=== PATIENT | female | born 2000 | race Hispanic/Latino ===

== ENCOUNTER 2025-03-12 04:54 | Emergency (ER) | payer SELFPAY ==
[~2025-03-12] VITALS: Ht 167.6 cm; Wt 81.6 kg
--- NOTE | 2025-03-12 05:04 | NUR ---
UA CUP PROVIDED
--- NOTE | 2025-03-12 05:21 | ERN ---
ED Note History of Present Illness Stated Complaint: BACK PAIN Chief Complaint: Back Pain-No Injury Time Seen by MD: 05:15 Dictation: This is a 24-year-old female who presented to the emergency room with complaints of upper back pain radiating to the ribs. All this started on 03/11/2025. History of any fever chills or rigors. No cough sputum or hemoptysis. Pain has no relation to the breathing. No history of any trauma, motor vehicle accident to the back the pain started in the right flank area and radiates to the front. No history of any gallstones. She ate a hot dog around 5:30 p.m. and after she slept from 7-11 p.m. she woke up with this pain. Stated that she got a similar kind of pain in the past when she had a UTI although she did not have dysuria hematuria this time Temperature 97.5 pulse 85 respirations 18 blood pressure 118/82 with a pulse oximetry of 99% on room air Allergies: Coded Allergies: No Known Allergies (Unverified Allergy, Unknown, 03/12/25) Home Meds Active Scripts Nitrofurantoin Monohyd/M-Cryst (Macrobid 100 mg Capsule) 100 Mg Capsule, 1 CAP PO BID for 7 Days, #14 CAP 0 Refills Prov:NADIA LANDRY MD 03/12/25 Past Medical History Past Medical History: No Pertinent History Surgical History: None Family History: Negative Social History: Negative LMP: Feb 08, 2025 RN Note Reviewed/Agreed w/PFSH: Yes Review of System Dictation Constitutional: Negative for fever,chills, and weight loss Eyes: Negative for injury, pain,redness, and discharge ENT: Negative for injury,pain or swelling Cardiovascular: Negative for chest pain, palpitations, and edema Respiratory: Negative for shortness of breath, cough, and wheezing, Abdomen/GI: Negative for abdominal pain, nausea, vomiting, diarrhea, and constipation Back: Positive for upper back pain with radiation to ribs : Negative for injury, bleeding and discharge MS/Extremity: Negative for injury and deformity Skin: Negative for rash, and discoloration Neuro: Negative for headache, weakness, numbness, tingling, and seizure Psych: Negative for suicide ideation, homicidal ideation, and hallucinations Initial Vital Sign VS Vital Signs Date Time Temp Pulse Resp B/P (MAP) Pulse Ox O2 Delivery O2 Flow Rate FiO2 03/12/25 05:02 97.5 85 18 118/82 99 Room Air 03/12/25 07:39 0 21 Physical Exam Dictation General: awake, alert, NAD Head/Face: Normocephalic, atraumatic Eyes: PERRL, EOMI, vision at baseline ENT: oral cavity clear, TMs clear, no signs of infection Neck: Trachea midline, supple, no nuchal rigidity Cardiovascular: RRR, normal S1/S2, No MRGs, no JVD Respiratory: CTAB, no respiratory distress, No rales or wheezes Abdomen: Soft, non-tender, non-distended, normal bowel sounds, no guarding or rebound. Skin: Warm, dry, normal turgor, no rash MS/Extremity: Pulses equal, no cyanosis, neurovascular intact, FROM Neuro: COAx4, GCS 15, strength 5/5, CN 2-12 intact, normal cerebellar exam, normal gait, Psych: Normal behavior, mood, and affect normal Extremities-trace edema without any palpable cords, Homans sign is negative Results (Laboratory/Radiology) Laboratory/Radiology Laboratory Tests Test 03/12/25 06:30 Urine Color YELLOW (YELLOW) Urine Appearance CLOUDY (CLEAR) H Urine pH 5.5 (5.0-8.0) Urine Specific Chestnut 1.024 (1.001-1.031) Urine Protein NEGATIVE mg/dL (NEGATIVE) Urine Glucose (UA) NEGATIVE mg/dL (NEGATIVE) Urine Ketones NEGATIVE mg/dL (NEGATIVE) Urine Occult Blood +- (TRACE) (NEGATIVE) H Urine Nitrate NEGATIVE (NEGATIVE) Urine Bilirubin NEGATIVE mg/dL (NEGATIVE) Urine Urobilinogen 0.2 mg/dL (0.2-1.0) Urine Leukocyte Esterase 250 Sridevi/uL (NEGATIVE) H Urine RBC 2-5 /HPF (0-1) H Urine WBC 2-5 /HPF (0-1) H Urine Squamous Epithelial Cells MANY /HPF (0-2) Urine Bacteria Rare /HPF (None Seen) Urine HCG, Qualitative NEGATIVE (NEGATIVE) Labs Reviewed?: Yes ED Course ED Course Orders Procedure Category Date Status Time Urinalysis Profile LAB 03/12/25 Complete 05:20 ,Urine Test LAB 03/12/25 Complete 05:20 Culture Urine ALVARO 03/12/25 In Process 06:56 Ketorolac PHA 03/12/25 Complete Tromethamine 30mg/Ml 07:00 Ceftriaxone 1g Vial PHA 03/12/25 Complete (Rocephine 1g Inj) 07:00 Current Medications Medications (Trade) Dose Ordered Sig/Ten Route PRN Reason Start Time Stop Time Status Last Admin Dose Admin Ceftriaxone Sodium (ROCEphine 1G INJ) 1 gm ONCE ONCE IM 03/12/25 07:00 03/12/25 07:01 DC 03/12/25 07:51 Ketorolac Tromethamine (toRADol) 30 mg ONCE ONCE IM 03/12/25 07:00 03/12/25 07:01 DC 03/12/25 07:35 Vital Signs Date Time Temp Pulse Resp B/P (MAP) Pulse Ox O2 Delivery O2 Flow Rate FiO2 03/12/25 08:13 98.2 76 16 120/68 99 Room Air* 0 03/12/25 07:39 97.9 78 16 122/71 99 Room Air* 0 03/12/25 05:02 97.5 85 18 118/82 99 Room Air Medical Decision Making MDM Differential diagnosis-pyelonephritis, renal colic, nephrolithiasis musculoskeletal pain, Lumbago, degenerative disc disease, paraspinal muscle spasm, central canal stenosis, dish, optimal stenosis, herniated intervertebral discs, spondylolisthesis This is a 24-year-old female who presented to the emergency room with complaints of upper back pain radiating to the ribs. All this started on 03/11/2025. History of any fever chills or rigors. No cough sputum or hemoptysis. Pain has no relation to the breathing. No history of any trauma, motor vehicle accident to the back the pain started in the right flank area and radiates to the front. No history of any gallstones. She ate a hot dog around 5:30 p.m. and after she slept from 7-11 p.m. she woke up with this pain. Stated that she got a similar kind of pain in the past when she had a UTI although she did not have dysuria hematuria this time Temperature 97.5 pulse 85 respirations 18 blood pressure 118/82 with a pulse oximetry of 99% on room air 6:50 a.m. urinalysis shows very high levels of leuko esterase. We will give her a dose of Rocephin and pain medication. Care signed out to oncoming physician at 7:00 a.m. Rationale: Tests considered and ordered secondary to shared decision making include: Urinalysis and urine test is negative would pursue a CT abdomen Previous outside records reviewed: Old ER visits. Risk of complication and/or morbidity or mortality of patient management: None Medications-Per medication reconciliation Need for hospitalization: Patient does not meet criteria for hospitalization. Need for emergency major/minor surgery: No There are no social concerns with this patient. Prescription drug management Prescriptions will include symptomatic care Patient's prior external medical records from other ER visits were reviewed by me as indicated. Prior testing and results from previous visits were reviewed. Prior tests were taken into account with medical decision making and resource utilization, independent historian/historians were used to obtain complete medical history. I independently interpreted the test that were performed, results were reviewed by me and considered findings on radiology if ordered. Medical management and examination interpretation discussions were had by me with other qualified healthcare professionals as indicated for the patient's care. Problem List Problem List: (1) Right flank pain (2) UTI (urinary tract infection) DX & DISP Disposition: Discharge Departure Impression: Primary Impression: Right flank pain Additional Impression: UTI (urinary tract infection) Condition: Stable Scripts Nitrofurantoin Monohyd/M-Cryst (Macrobid 100 mg Capsule) 100 Mg Capsule 1 CAP PO BID for 7 Days, #14 CAP 0 Refills Prov: NADIA LANDRY MD 03/12/25 Additional Instructions: Patient and the caregiver have been informed of all the diagnostic tests and the imaging conducted during the today's visit to the emergency room and has verbalized understanding of the results I have personally reviewed and interpreted all diagnostic exams performed here in the ER today as well as the vital signs documented by the nursing staff. The patient is now being discharged to home and should follow up with the primary care physician or the specialist as directed by the ER staff. Referrals: SELF,REFERRAL (PCP) NADIA LANDRY MD Mar 12, 2025 05:21
[2025-03-12 06:47] LABS: APPEARANCE,URINE CLOUDY (CLEAR); GLUCOSE, URINE (UA) NEGATIVE (NEGATIVE); LEUKOCYTE ESTERASE ,URINE 250 Leu/uL (NEGATIVE); NITRATE,URINE NEGATIVE (NEGATIVE); OCCULT BLOOD,URINE +- (TRACE) (NEGATIVE)
[2025-03-12 06:55] LABS: ADD UA MICROSCOPIC YES
[2025-03-12 07:07] LABS: SQUAMOUS EPITHELIAL CELL,UR MANY /HPF (0-2)
[2025-03-12 07:11] LABS: HCG,QUALITATIVE URINE NEGATIVE (NEGATIVE)
[2025-03-12] MEDS ORDERED: NITR100C4 PO (07:15)
[2025-03-12 08:13] VITALS: BP 120/68; PULSE 76; RESP 16; TEMP 98.2; O2SAT 99
== END 2025-03-12 08:14 | disposition home or self-care (01) ==
LOC: EDH 04:54
DX: N39.0 Urinary tract infection, site not specified (principal); R10.A1 Flank pain, right side
CPT/HCPCS: 99284; 87086; 81001; 81025; 96372 ×2; J1885; J0696